=== PATIENT | female | born 1960 | race Caucasian/White ===

== ENCOUNTER 2020-04-28 21:58 | Emergency (ER) | payer MEDICARE ==
[2020-05-05] MEDS ORDERED: CLARITIN 10MG T10 MG PO (08:47)
[2020-05-05] MEDS ORDERED: CLOPIDOGREL75 MG PO (08:47)
[2020-05-05] MEDS ORDERED: ALENDRONATE SOD70 MG PO (08:47)
[2020-05-05] MEDS ORDERED: DIGOXIN125 MCG PO (08:48)
[2020-05-05] MEDS ORDERED: LISINOPRIL2.5 MG PO (08:49)
[2020-05-05] MEDS ORDERED: ZETIA10 MG PO (08:49)
[2020-05-05] MEDS ORDERED: NITROGLYCERIN0.4 MG SL (08:50)
[2020-05-05] MEDS ORDERED: LOPRESSOR 25 MG25 MG PO (08:50)
[2020-05-05] MEDS ORDERED: RANOLAZINE ER1000 MG PO (08:50)
[2020-05-05] MEDS ORDERED: CRESTOR20 MG PO (08:51)
[2020-05-05] MEDS ORDERED: SERTRALINE HCL100 MG PO (08:52)
[2020-05-05] MEDS ORDERED: TOPIRAMATE50 MG PO (08:52)
[2020-05-05] MEDS ORDERED: TRAZODONE HCL150 MG PO (08:53)
[2020-05-05] MEDS ORDERED: GABAPENTIN800 MG PO (08:53)
[2020-05-05] MEDS ORDERED: OXYCODONE HCL15 MG PO (08:54)
[2020-05-05] MEDS ORDERED: ATROVENT HFA12.9 GM INH (08:55)
[2020-05-05] MEDS ORDERED: ASPIRIN325 MG PO (08:55)
[2020-05-05] MEDS ORDERED: LASIX20 MG PO (08:56)
[2020-05-05] MEDS ORDERED: LINZESS145 MCG PO (08:57)
[2020-05-05] MEDS ORDERED: POTASSIUM CHLO20 ME1 PO (08:58)
[2020-05-05] MEDS ORDERED: LEVOFLOXACIN500 MG PO (11:29)
== END 2020-04-29 01:26 | disposition left against medical advice (07) ==
LOC: ER1 21:58
DX: R06.02 Shortness of breath (principal); R53.1 Weakness; Z53.21 Procedure and treatment not carried out due to patient leaving prior to being seen by health care provider
CPT/HCPCS: 93005

== ENCOUNTER → 2020-05-03 | Outpatient (CLI) | payer MEDICARE ==
[~2020-05-03] MED LIST: ALENDRONATE SOD70 MG PO; ASPIRIN325 MG PO; ATROVENT HFA12.9 GM INH; CLARITIN 10MG T10 MG PO; CLOPIDOGREL75 MG PO; CRESTOR20 MG PO; DIGOXIN125 MCG PO; GABAPENTIN800 MG PO; LASIX20 MG PO; LEVOFLOXACIN500 MG PO; LINZESS145 MCG PO; LISINOPRIL2.5 MG PO; LOPRESSOR 25 MG25 MG PO; NITROGLYCERIN0.4 MG SL; OXYCODONE HCL15 MG PO; POTASSIUM CHLO20 ME1 PO; RANOLAZINE ER1000 MG PO; SERTRALINE HCL100 MG PO; TOPIRAMATE50 MG PO; TRAZODONE HCL150 MG PO; ZETIA10 MG PO
[2020-05-03 12:19] LABS: HEMOGLOBIN 12.5 gm/dl (12.3-15.3); RED BLOOD COUNT 3.98 M/UL (4.00-5.10); WHITE BLOOD COUNT 6.6 K/UL (4.5-11.0)
[2020-05-03 12:35] LABS: BUN/CREATININE RATIO 10 (0-10)
== END ==
LOC: LAB 11:55
PROVIDERS: Internal Medicine Cardiovascular Disease
DX: Z45.02 Encounter for adjustment and management of automatic implantable cardiac defibrillator (principal); I50.22 Chronic systolic (congestive) heart failure; I25.5 Ischemic cardiomyopathy
CPT/HCPCS: 36415; 71046; 80048; 85025

== ENCOUNTER → 2020-05-05 | Outpatient (CLI) | payer MEDICARE | LOC: CATH 07:10 | DX: Z45.02 Encounter for adjustment and management of automatic implantable cardiac defibrillator (principal); I11.0 Hypertensive heart disease with heart failure; I50.22 Chronic systolic (congestive) heart failure; I25.5 Ischemic cardiomyopathy; I25.10 Atherosclerotic heart disease of native coronary artery without angina pectoris; I25.2 Old myocardial infarction; I49.5 Sick sinus syndrome; J44.9 Chronic obstructive pulmonary disease, unspecified; K21.9 Gastro-esophageal reflux disease without esophagitis; E78.5 Hyperlipidemia, unspecified; M81.0 Age-related osteoporosis without current pathological fracture; F17.210 Nicotine dependence, cigarettes, uncomplicated; Z95.810 Presence of automatic (implantable) cardiac defibrillator; Z82.49 Family history of ischemic heart disease and other diseases of the circulatory system; Z79.82 Long term (current) use of aspirin; Z79.02 Long term (current) use of antithrombotics/antiplatelets; Z79.899 Other long term (current) drug therapy | CPT/HCPCS: 33240; 93641; 99152; 99153; C1721; J1200; J2250; J3010; J3370; J7030; J7040; J7050 ==